=== PATIENT | female | born 1990 | race Caucasian/White ===

== ENCOUNTER 2016-11-07 22:00 | Emergency (ER) | payer OTHER ==
[~2016-11-07 22:00] MED LIST: ACET-653 PO; AMOX250C3 PO; DOCU10CA PO; IBUP80TA PO; PEPC10CH PO; PEPC10TA PO; PRENTAB54 PO; PRENTAB55 PO; VITAPRTA PO; ZANTTAB PO; ZOFR20TA PO
[2016-11-08] MEDS ORDERED: OXYCODONE/APAP 5MG/325MG(BULK) 1 TAB TAB As Ordered ONE (01:42)
[2016-11-08] MEDS ORDERED: CIPROFLOXACIN 500 MG TAB As Ordered ONE (01:42)
--- NOTE | 2016-11-08 01:54 | EDDOCDS ---
Physician Documentation [facility] Name: Oralia Ross Age: 25 yrs Sex: Female : 1990 Arrival Date: 11/07/2016 Time: 22:00 Bed 9 Private MD: PATRICK Javier Disposition: 11/08/16 01:38 Discharged to Home/Self Care. Impression: Urinary tract infection, site not specified. - Condition is Stable. - Discharge Instructions: Pyelonephritis, Adult, Pyelonephritis, Adult, Lcvm-[id number], Urinary Tract Infection, Urinary Tract Infection, Dxtf-kc-Hiky. - Prescriptions for Cipro 500 mg Oral Tablet - take 1 tablet by ORAL route every 12 hours; 14 tablet. Percocet 5- 325 mg Oral Tablet - take 1 tablet by ORAL route every 6 hours As needed MDD: 4 tabs; 20 tablet. - Medication Reconciliation, Local Pharmacy Hours form. - Follow up: PATRICK Javier; When: 1 week; Reason: Continuance of care. - Problem is an ongoing problem. - Symptoms have improved. Historical: - Allergies: no known allergies; - Home Meds: 1. Advil 200 mg Oral tab (Last dose: 11/07/2016 19:00) - PMHx: Kidney stones; kidney infections; kidney stent, right side; - PSHx: Ureteral Stent- Right; - Social history: Smoking status: Patient uses tobacco products, light tobacco smoker. No barriers to communication noted, The patient speaks fluent Nigerian, Speaks appropriately for age. - Family history: No immediate family members are acutely ill. - : The pt / caregiver states he / she is not on anticoagulants. Home medication list is obtained from the patient. - Exposure Risk Screening:: None identified. SOCIAL MEDIA MANAGER: 11/07 22:31 LMP 10/16/2016 ttb Vital Signs: 22:02 BP 134 / 85; Pulse 109; Resp 18 S; Temp 96.8(O); Pulse Ox 100% on R/A; Weight 63.5 kg / dd6 139.99 lbs (R); Height 5 ft. 5 in. (165.10 cm) (R); 11/08 00:50 BP 125 / 82; Pulse 98; Resp 18; Temp 96.8; Pulse Ox 99% ; Pain 9/10; jlm 01:50 BP 130 / 74; Pulse 65; Resp 18; Temp 97.5(TE); Pulse Ox 96% on R/A; Pain 06/08; nn1 11/07 22:02 Body Mass Index 23.30 (63.50 kg, 165.10 cm) dd6 MDM: 11/07 22:34 UA Ordered. EDMS 11/08 01:25 UA Reviewed. mm11 01:33 Ciprofloxacin 500 mg PO once ordered. mm11 01:33 oxyCODONE-acetaminophen 4 pack 5 mg-325 mg 1 packets PO once; Dispense with pt, take as mm11 per instruction on package ordered. 01:34 Urine Culture Ordered. EDMS 01:51 Financial registration complete. [facility] Administered Medications: 01:51 Drug: Ciprofloxacin 500 mg [ciprofloxacin 500 mg tablet (1 tabs)] Route: PO; nn1 01:51 Drug: oxyCODONE-acetaminophen 4 pack 1 packets [oxycodone-acetaminophen 5 mg-325 mg nn1 tablet (1 tabs)] {Co-Signature: [email or web address] (Maribel Clayton RN).} Route: PO; Signatures: Dispatcher [employer] EDMI Herbert Sagastume, DO mm11 Janay Abdalla RN RN ttb Hook, Sandra [facility] Nga PerezRN RN nn1 Maribel Clayton RN kas2 MTDD
--- NOTE | 2016-11-08 01:54 | EDDOCDS ---
Nurse's Notes [facility] Name: Oralia Ross Age: 25 yrs Sex: Female : 1990 Arrival Date: 11/07/2016 Time: 22:00 Bed 9 Private MD: PATRICK Javier Diagnosis: Urinary tract infection, site not specified Presentation: 11/07 22:29 Presenting complaint: Patient states: lower abd pain, radiates into back x1 month. ttb Denies symptoms. "extreme fatigue" for 3 days. Denies GI symptoms. Some dizziness. No injury. Acute neurological deficits are not present. Mechanism of Injury: No Mechanism of Injury. Adult Sepsis Screening: The patient does not have new or worsening altered mentation. Patient's respiratory rate is less than 22. Systolic blood pressure is greater than 100. Patient has a qSOFA score of 0- Negative Sepsis Screen. Suicide/Homicide risk assessment- the patient denies having any suicidal and/or homicidal ideations and does not present with any other emotional, behavioral or mental health complaints. Status: The patient is a dependent. Transition of care: patient was not received from another setting of care. 22:29 Acuity: NITO Level 3 ttb 22:29 Method Of Arrival: Walkin/Carried/Asstd ttb Triage Assessment: 22:31 General: Appears uncomfortable, well nourished, well groomed, Behavior is appropriate ttb for age, cooperative, pleasant. Pain: Location: lower abd Pain currently is 8 out of 10 on a pain scale. Pain radiates to into back. HIV screening NA for this visit Offered previously. Cardiovascular: Chest pain is denied. Respiratory: No deficits noted. Airway is patent Denies cough, shortness of breath. GI: Reports lower abdominal pain. : Denies burning with urination, inability to void, urinary frequency, urgency. Musculoskeletal: Range of motion intact in all extremities. Injury Description: No known injury. FITNESS COORDINATOR: 22:31 LMP 10/16/2016 ttb Historical: - Allergies: no known allergies; - Home Meds: 1. Advil 200 mg Oral tab (Last dose: 11/07/2016 19:00) - PMHx: Kidney stones; kidney infections; kidney stent, right side; - PSHx: Ureteral Stent- Right; - Social history: Smoking status: Patient uses tobacco products, light tobacco smoker. No barriers to communication noted, The patient speaks fluent Gibraltarian, Speaks appropriately for age. - Family history: No immediate family members are acutely ill. - : The pt / caregiver states he / she is not on anticoagulants. Home medication list is obtained from the patient. - Exposure Risk Screening:: None identified. Screenin/10 01:49 Screening information is obtained from the patient. Fall risk: No risks identified. nn1 Assistance ADL's: requires no assistance with activities of daily living. Abuse/DV Screen: The patient / caregiver reports he/she is: not in a situation that causes fear, pain or injury. Nutritional screening: No deficits noted. Advance Directives: Currently, there is no health care proxy. home support is adequate. Assessment: 01:21 General: Appears in no apparent distress, uncomfortable, Behavior is appropriate for nn1 age, cooperative. General: Patient reports increased fatigue, reports pain has become worse over the last few days. . Pain: Location: left low back Pain currently is 9 out of 10 on a pain scale. Pain radiates to left lower quadrant Quality of pain is described as sharp, Pain began couple of weeks ago. Neurological: Level of Consciousness is awake, alert, obeys commands, Oriented to person, place, time. Respiratory: Airway is patent Respiratory effort is even, unlabored, Respiratory pattern is regular, symmetrical, GI: Abdomen is non- distended Bowel sounds present X 4 quads. Abd is soft X 4 quads Denies constipation, diarrhea, nausea, vomiting. : Denies burning with urination, cramping discharge. Derm: Skin is pink, warm & dry. 01:49 General: Appears in no apparent distress, Behavior is appropriate for age, cooperative. nn1 Pain: Pain currently is 8 out of 10 on a pain scale. Neurological: Level of Consciousness is awake, alert. Respiratory: Airway is patent Respiratory effort is even, unlabored. Derm: Skin is pink, warm & dry. Vital Signs: 11/07 22:02 BP 134 / 85; Pulse 109; Resp 18 S; Temp 96.8(O); Pulse Ox 100% on R/A; Weight 63.5 kg dd6 (R); Height 5 ft. 5 in. (165.10 cm) (R); 11/08 00:50 BP 125 / 82; Pulse 98; Resp 18; Temp 96.8; Pulse Ox 99% ; Pain 9/10; jlm 01:50 BP 130 / 74; Pulse 65; Resp 18; Temp 97.5(TE); Pulse Ox 96% on R/A; Pain 8/10; nn1 11/07 22:02 Body Mass Index 23.30 (63.50 kg, 165.10 cm) dd6 Vitals: 11/07 22:02 Log In Time: November 07, 2016 at 22:00. dd6 ED Course: 22:01 Patient visited by Master Harp PCA. dd6 22:01 Patient moved to Waiting dd6 22:02 Concepcion [facility] is Private Physician. dd6 22:02 Patient moved to Pre RCE dd6 22:30 Triage Initiated ttb 22:37 UA Sent. ar3 22:38 Patient visited by Crissy Harkins PCA. ar3 11/08 00:52 Patient visited by Ceci Porter Strike Plate Attacher. jlm 01:16 Patient moved to 9 sls1 01:23 Herbert Sagastume DO is Attending Physician. mm11 01:23 Patient visited by Herbert Sagastume DO. mm11 01:33 Patient visited by Herbert Sagastume DO. mm11 01:37 PATRICK Javier is Referral Physician. mm11 01:50 No IV's were initiated during this patient's visit. No procedures done that require nn1 assistance. 01:51 The patient / caregiver is instructed regarding the plan of care and ED course. nn1 Administered Medications: 01:51 Drug: Ciprofloxacin 500 mg [ciprofloxacin 500 mg tablet (1 tabs)] Route: PO; nn1 01:51 Drug: oxyCODONE-acetaminophen 4 pack 1 packets [oxycodone-acetaminophen 5 mg-325 mg nn1 tablet (1 tabs)] {Co-Signature: kas2 (Maribel Clayton RN).} Route: PO; Order Results: Lab Order: UA; SPEC'M 11/07/16 22:37 Test: APPEARANCE, URINE; Value: CLOUDY; Range: CLEAR; Abnormal: Above high normal; Status: F Test: COLOR, URINE; Value: YELLOW; Range: YELLOW; Status: F Test: PH,URINE; Value: 6.0; Range: 5.0-9.0; Units: UNITS; Status: F Test: SPECIFIC GRAVITY URINE AUTO; Value: 1.018; Range: 1.002-1.035; Status: F Test: PROTEIN, URINE AUTO; Value: NEGATIVE; Range: NEGATIVE; Units: mg/dL; Status: F Test: GLUCOSE, URINE (UA) AUTO; Value: NEGATIVE; Range: NEGATIVE; Units: mg/dL; Status: F Test: KETONE, URINE AUTO; Value: NEGATIVE; Range: NEGATIVE; Units: mg/dL; Status: F Test: UROBILINOGEN, URINE AUTO; Value: 0.2; Range: 0.0-2.0; Units: mg/dL; Status: F Test: BILIRUBIN, URINE AUTO; Value: NEGATIVE; Range: NEGATIVE; Status: F Test: NITRITE, URINE AUTO; Value: NEGATIVE; Range: NEGATIVE; Status: F Test: LEUKOCYTE ESTERASE, URINE AUTO; Value: 2+; Range: NEGATIVE; Abnormal: Above high normal; Status: F Test: BLOOD, URINE BLOOD; Value: 2+; Range: NEGATIVE; Abnormal: Above high normal; Status: F Test: WBC, URINE AUTO; Value: 7; Range: 0-3; Abnormal: Above high normal; Units: /HPF; Status: F Test: RBC, URINE AUTO; Value: 133; Range: 0-3; Abnormal: Above high normal; Units: /HPF; Status: F Test: BACTERIA, URINE AUTO; Value: NEGATIVE; Range: NEGATIVE; Status: F Test: SQUAMOUS EPITHELIAL CELL UR AU; Value: 5; Range: 0-6; Units: /HPF; Status: F Test: MUCUS, URINE; Value: SMALL; Range: NEGATIVE; Status: F Test: HYALINE CAST, URINE AUTO; Value: 0; Range: 0-1; Units: /LPF; Status: F Outcome: 01:38 Discharge ordered by Provider. mm11 01:50 Discharge Assessment: Patient awake, alert and oriented x 3. No cognitive and/or nn1 functional deficits noted. Patient verbalized understanding of disposition instructions. patient administered narcotics - no. The following High Risk Discharge criteria are identified: None. Discharged to home ambulatory. Condition: stable. Prescriptions given X 2. No special radiology studies were completed. Property :Personal belongings accompany Pt. 01:53 Patient left the ED. nn1 Signatures: Herbert Sagastume DO DO mm11 Master Harp, COMMUNICATIONS PROGRAM MANAGER COMMUNICATIONS PROGRAM MANAGER dd6 Crissy Harkins, COMMUNICATIONS PROGRAM MANAGER COMMUNICATIONS PROGRAM MANAGER ar3 Opal Cohen, RN RN sls1 Janay Abdalla, RN RN Ceci Blackman, Strike Plate Attacher Unit benjamín Nga Perez,RN RN nn1 Maribel Clayton RN kas2 MTDD
--- NOTE | 2016-11-10 02:54 | EDDOCDS ---
Physician Documentation [facility] Name: Oralia Ross Age: 25 yrs Sex: Female : 1990 Arrival Date: 11/07/2016 Time: 22:00 Bed 9 Private MD: PATRICK Javier Disposition: 11/08/16 01:38 Discharged to Home/Self Care. Impression: Urinary tract infection, site not specified. - Condition is Stable. - Discharge Instructions: Pyelonephritis, Adult, Pyelonephritis, Adult, Noxz-ui-Typf, Urinary Tract Infection, Urinary Tract Infection, Fdmi-ku-Mvjl. - Prescriptions for Cipro 500 mg Oral Tablet - take 1 tablet by ORAL route every 12 hours; 14 tablet. Percocet 5- 325 mg Oral Tablet - take 1 tablet by ORAL route every 6 hours As needed MDD: 4 tabs; 20 tablet. - Medication Reconciliation, Local Pharmacy Hours form. - Follow up: PATRICK Javier; When: 1 week; Reason: Continuance of care. - Problem is an ongoing problem. - Symptoms have improved. Historical: - Allergies: no known allergies; - Home Meds: 1. Advil 200 mg Oral tab (Last dose: 11/07/2016 19:00) - PMHx: Kidney stones; kidney infections; kidney stent, right side; - PSHx: Ureteral Stent- Right; - Social history: Smoking status: Patient uses tobacco products, light tobacco smoker. No barriers to communication noted, The patient speaks fluent Danish, Speaks appropriately for age. - Family history: No immediate family members are acutely ill. - : The pt / caregiver states he / she is not on anticoagulants. Home medication list is obtained from the patient. - Exposure Risk Screening:: None identified. TRIALS MANAGER: 11/07 22:31 LMP 10/16/2016 ttb Vital Signs: 22:02 BP 134 / 85; Pulse 109; Resp 18 S; Temp 96.8(O); Pulse Ox 100% on R/A; Weight 63.5 kg / dd6 139.99 lbs (R); Height 5 ft. 5 in. (165.10 cm) (R); 11/08 00:50 BP 125 / 82; Pulse 98; Resp 18; Temp 96.8; Pulse Ox 99% ; Pain 9/10; jlm 01:50 BP 130 / 74; Pulse 65; Resp 18; Temp 97.5(TE); Pulse Ox 96% on R/A; Pain 8/10; nn1 11/07 22:02 Body Mass Index 23.30 (63.50 kg, 165.10 cm) dd6 MDM: 11/07 22:34 UA Ordered. EDMS 11/08 01:25 UA Reviewed. mm11 01:33 Ciprofloxacin 500 mg PO once ordered. mm11 01:33 oxyCODONE-acetaminophen 4 pack 5 mg-325 mg 1 packets PO once; Dispense with pt, take as mm11 per instruction on package ordered. 01:34 Urine Culture Ordered. EDMS 01:51 Financial registration complete. [facility] 03:12 T-Sheet-- Draft Copy was scanned into [employer] and attached to record. 2 04:13 [facility] Payment Agreement was scanned into [employer] and attached to record. [facility] Administered Medications: 01:51 Drug: Ciprofloxacin 500 mg [ciprofloxacin 500 mg tablet (1 tabs)] Route: PO; nn1 01:51 Drug: oxyCODONE-acetaminophen 4 pack 1 packets [oxycodone-acetaminophen 5 mg-325 mg nn1 tablet (1 tabs)] {Co-Signature: [email or web address] (Maribel Clayton RN).} Route: PO; Signatures: Dispatcher [employer] EDND Herbert Sagastume DO DO mm11 Janay Abdalla RN RN Silvia Latham Nga DesirRN RN nn1 Yancy Tavera, Reg Reg hs2 Maribel Clayton RN kas2 The chart was reviewed and I authenticate all verbal orders and agree with the evaluation and treatment provided.Attachments: 03:12 T-Sheet-- Draft Copy hs2 04:13 [facility] Payment Agreement [facility] Chart Complete MTDD
--- NOTE | 2016-11-10 02:54 | EDDOCDS ---
Physician Documentation [facility] Name: Oralia Ross Age: 25 yrs Sex: Female : 1990 Arrival Date: 11/07/2016 Time: 22:00 Bed 9 Private MD: PATRICK Javier Disposition: 11/08/16 01:38 Discharged to Home/Self Care. Impression: Urinary tract infection, site not specified. - Condition is Stable. - Discharge Instructions: Pyelonephritis, Adult, Pyelonephritis, Adult, Syqd-hj-Kyen, Urinary Tract Infection, Urinary Tract Infection, Ktnz-qp-Iacz. - Prescriptions for Cipro 500 mg Oral Tablet - take 1 tablet by ORAL route every 12 hours; 14 tablet. Percocet 5- 325 mg Oral Tablet - take 1 tablet by ORAL route every 6 hours As needed MDD: 4 tabs; 20 tablet. - Medication Reconciliation, Local Pharmacy Hours form. - Follow up: PATRICK Javier; When: 1 week; Reason: Continuance of care. - Problem is an ongoing problem. - Symptoms have improved. Historical: - Allergies: no known allergies; - Home Meds: 1. Advil 200 mg Oral tab (Last dose: 11/07/2016 19:00) - PMHx: Kidney stones; kidney infections; kidney stent, right side; - PSHx: Ureteral Stent- Right; - Social history: Smoking status: Patient uses tobacco products, light tobacco smoker. No barriers to communication noted, The patient speaks fluent Maori, Speaks appropriately for age. - Family history: No immediate family members are acutely ill. - : The pt / caregiver states he / she is not on anticoagulants. Home medication list is obtained from the patient. - Exposure Risk Screening:: None identified. ENVIRONMENTAL MAINTENANCE WORKER: 11/07 22:31 LMP 10/16/2016 ttb Vital Signs: 22:02 BP 134 / 85; Pulse 109; Resp 18 S; Temp 96.8(O); Pulse Ox 100% on R/A; Weight 63.5 kg / dd6 139.99 lbs (R); Height 5 ft. 5 in. (165.10 cm) (R); 11/08 00:50 BP 125 / 82; Pulse 98; Resp 18; Temp 96.8; Pulse Ox 99% ; Pain 9/10; jlm 01:50 BP 130 / 74; Pulse 65; Resp 18; Temp 97.5(TE); Pulse Ox 96% on R/A; Pain 8/10; nn1 11/07 22:02 Body Mass Index 23.30 (63.50 kg, 165.10 cm) dd6 MDM: 11/07 22:34 UA Ordered. EDMS 11/08 01:25 UA Reviewed. mm11 01:33 Ciprofloxacin 500 mg PO once ordered. mm11 01:33 oxyCODONE-acetaminophen 4 pack 5 mg-325 mg 1 packets PO once; Dispense with pt, take as mm11 per instruction on package ordered. 01:34 Urine Culture Ordered. EDMS 01:51 Financial registration complete. [facility] 03:12 T-Sheet-- Draft Copy was scanned into [email or web address] and attached to record. 2 04:13 [facility] Payment Agreement was scanned into [email or web address] and attached to record. [facility] Administered Medications: 01:51 Drug: Ciprofloxacin 500 mg [ciprofloxacin 500 mg tablet (1 tabs)] Route: PO; nn1 01:51 Drug: oxyCODONE-acetaminophen 4 pack 1 packets [oxycodone-acetaminophen 5 mg-325 mg nn1 tablet (1 tabs)] {Co-Signature: [email or web address] (Maribel Clayton RN).} Route: PO; Signatures: Dispatcher [employer] EDHI Herbert Sagastume DO DO mm11 Janay Abdalla RN RN Silvia Latham Nga DesirRN RN nn1 Yancy Tavera, Reg Reg hs2 Maribel Clayton RN kas2 The chart was reviewed and I authenticate all verbal orders and agree with the evaluation and treatment provided.Attachments: 03:12 T-Sheet-- Draft Copy hs2 04:13 [facility] Payment Agreement [facility] Chart Complete MTDD
--- NOTE | 2016-11-10 02:54 | EDDOCDS ---
Nurse's Notes [facility] Name: Oralia Ross Age: 25 yrs Sex: Female : 1990 Arrival Date: 11/07/2016 Time: 22:00 Bed 9 Private MD: PATRICK Javier Diagnosis: Urinary tract infection, site not specified Presentation: 11/07 22:29 Presenting complaint: Patient states: lower abd pain, radiates into back x1 month. ttb Denies symptoms. "extreme fatigue" for 3 days. Denies GI symptoms. Some dizziness. No injury. Acute neurological deficits are not present. Mechanism of Injury: No Mechanism of Injury. Adult Sepsis Screening: The patient does not have new or worsening altered mentation. Patient's respiratory rate is less than 22. Systolic blood pressure is greater than 100. Patient has a qSOFA score of 0- Negative Sepsis Screen. Suicide/Homicide risk assessment- the patient denies having any suicidal and/or homicidal ideations and does not present with any other emotional, behavioral or mental health complaints. Status: The patient is a dependent. Transition of care: patient was not received from another setting of care. 22:29 Acuity: NITO Level 3 ttb 22:29 Method Of Arrival: Walkin/Carried/Asstd ttb Triage Assessment: 22:31 General: Appears uncomfortable, well nourished, well groomed, Behavior is appropriate ttb for age, cooperative, pleasant. Pain: Location: lower abd Pain currently is 8 out of 10 on a pain scale. Pain radiates to into back. HIV screening NA for this visit Offered previously. Cardiovascular: Chest pain is denied. Respiratory: No deficits noted. Airway is patent Denies cough, shortness of breath. GI: Reports lower abdominal pain. : Denies burning with urination, inability to void, urinary frequency, urgency. Musculoskeletal: Range of motion intact in all extremities. Injury Description: No known injury. PARISH NURSE: 22:31 LMP 10/16/2016 ttb Historical: - Allergies: no known allergies; - Home Meds: 1. Advil 200 mg Oral tab (Last dose: 11/07/2016 19:00) - PMHx: Kidney stones; kidney infections; kidney stent, right side; - PSHx: Ureteral Stent- Right; - Social history: Smoking status: Patient uses tobacco products, light tobacco smoker. No barriers to communication noted, The patient speaks fluent Irish, Speaks appropriately for age. - Family history: No immediate family members are acutely ill. - : The pt / caregiver states he / she is not on anticoagulants. Home medication list is obtained from the patient. - Exposure Risk Screening:: None identified. Screenin/10 01:49 Screening information is obtained from the patient. Fall risk: No risks identified. nn1 Assistance ADL's: requires no assistance with activities of daily living. Abuse/DV Screen: The patient / caregiver reports he/she is: not in a situation that causes fear, pain or injury. Nutritional screening: No deficits noted. Advance Directives: Currently, there is no health care proxy. home support is adequate. Assessment: 01:21 General: Appears in no apparent distress, uncomfortable, Behavior is appropriate for nn1 age, cooperative. General: Patient reports increased fatigue, reports pain has become worse over the last few days. . Pain: Location: left low back Pain currently is 9 out of 10 on a pain scale. Pain radiates to left lower quadrant Quality of pain is described as sharp, Pain began couple of weeks ago. Neurological: Level of Consciousness is awake, alert, obeys commands, Oriented to person, place, time. Respiratory: Airway is patent Respiratory effort is even, unlabored, Respiratory pattern is regular, symmetrical, GI: Abdomen is non- distended Bowel sounds present X 4 quads. Abd is soft X 4 quads Denies constipation, diarrhea, nausea, vomiting. : Denies burning with urination, cramping discharge. Derm: Skin is pink, warm & dry. 01:49 General: Appears in no apparent distress, Behavior is appropriate for age, cooperative. nn1 Pain: Pain currently is 8 out of 10 on a pain scale. Neurological: Level of Consciousness is awake, alert. Respiratory: Airway is patent Respiratory effort is even, unlabored. Derm: Skin is pink, warm & dry. Vital Signs: 11/07 22:02 BP 134 / 85; Pulse 109; Resp 18 S; Temp 96.8(O); Pulse Ox 100% on R/A; Weight 63.5 kg dd6 (R); Height 5 ft. 5 in. (165.10 cm) (R); 11/08 00:50 BP 125 / 82; Pulse 98; Resp 18; Temp 96.8; Pulse Ox 99% ; Pain 9/10; jlm 01:50 BP 130 / 74; Pulse 65; Resp 18; Temp 97.5(TE); Pulse Ox 96% on R/A; Pain 8/10; nn1 11/07 22:02 Body Mass Index 23.30 (63.50 kg, 165.10 cm) dd6 Vitals: 11/07 22:02 Log In Time: November 07, 2016 at 22:00. dd6 ED Course: 22:01 Patient visited by Master Harp PCA. dd6 22:01 Patient moved to Waiting dd6 22:02 Concepcion [facility] is Private Physician. dd6 22:02 Patient moved to Pre RCE dd6 22:30 Triage Initiated ttb 22:37 UA Sent. ar3 22:38 Patient visited by Crissy Harkins PCA. ar3 11/08 00:52 Patient visited by Ceci Porter Tool [employer]. jlm 01:16 Patient moved to 9 sls1 01:23 Herbert Sagastume DO is Attending Physician. mm11 01:23 Patient visited by Herbert Sagastume DO. mm11 01:33 Patient visited by Herbert Sagastume DO. mm11 01:37 Concepcion [facility] is Referral Physician. mm11 01:50 No IV's were initiated during this patient's visit. No procedures done that require nn1 assistance. 01:51 The patient / caregiver is instructed regarding the plan of care and ED course. nn1 03:12 T-Sheet-- Draft Copy was scanned into Collect and attached to record. hs2 04:13 PENDING SALE TO [facility] Payment Agreement was scanned into Collect and attached to record. [facility] Administered Medications: 01:51 Drug: Ciprofloxacin 500 mg [ciprofloxacin 500 mg tablet (1 tabs)] Route: PO; nn1 01:51 Drug: oxyCODONE-acetaminophen 4 pack 1 packets [oxycodone-acetaminophen 5 mg-325 mg nn1 tablet (1 tabs)] {Co-Signature: kas2 (Maribel Clayton RN).} Route: PO; Order Results: Lab Order: UA; SPEC'M 11/07/16 22:37 Test: APPEARANCE, URINE; Value: CLOUDY; Range: CLEAR; Abnormal: Above high normal; Status: F Test: COLOR, URINE; Value: YELLOW; Range: YELLOW; Status: F Test: PH,URINE; Value: 6.0; Range: 5.0-9.0; Units: UNITS; Status: F Test: SPECIFIC GRAVITY URINE AUTO; Value: 1.018; Range: 1.002-1.035; Status: F Test: PROTEIN, URINE AUTO; Value: NEGATIVE; Range: NEGATIVE; Units: mg/dL; Status: F Test: GLUCOSE, URINE (UA) AUTO; Value: NEGATIVE; Range: NEGATIVE; Units: mg/dL; Status: F Test: KETONE, URINE AUTO; Value: NEGATIVE; Range: NEGATIVE; Units: mg/dL; Status: F Test: UROBILINOGEN, URINE AUTO; Value: 0.2; Range: 0.0-2.0; Units: mg/dL; Status: F Test: BILIRUBIN, URINE AUTO; Value: NEGATIVE; Range: NEGATIVE; Status: F Test: NITRITE, URINE AUTO; Value: NEGATIVE; Range: NEGATIVE; Status: F Test: LEUKOCYTE ESTERASE, URINE AUTO; Value: 2+; Range: NEGATIVE; Abnormal: Above high normal; Status: F Test: BLOOD, URINE BLOOD; Value: 2+; Range: NEGATIVE; Abnormal: Above high normal; Status: F Test: WBC, URINE AUTO; Value: 7; Range: 0-3; Abnormal: Above high normal; Units: /HPF; Status: F Test: RBC, URINE AUTO; Value: 133; Range: 0-3; Abnormal: Above high normal; Units: /HPF; Status: F Test: BACTERIA, URINE AUTO; Value: NEGATIVE; Range: NEGATIVE; Status: F Test: SQUAMOUS EPITHELIAL CELL UR AU; Value: 5; Range: 0-6; Units: /HPF; Status: F Test: MUCUS, URINE; Value: SMALL; Range: NEGATIVE; Status: F Test: HYALINE CAST, URINE AUTO; Value: 0; Range: 0-1; Units: /LPF; Status: F Outcome: 01:38 Discharge ordered by Provider. mm11 01:50 Discharge Assessment: Patient awake, alert and oriented x 3. No cognitive and/or nn1 functional deficits noted. Patient verbalized understanding of disposition instructions. patient administered narcotics - no. The following High Risk Discharge criteria are identified: None. Discharged to home ambulatory. Condition: stable. Prescriptions given X 2. No special radiology studies were completed. Property :Personal belongings accompany Pt. 01:53 Patient left the ED. nn1 Signatures: Herbert Sagastume, DO mm11 Master Harp, COTTAGE ATTENDANT COTTAGE ATTENDANT dd6 Keith Harkinsa, COTTAGE ATTENDANT COTTAGE ATTENDANT ar3 Opal Cohen RN RN sls1 Janay Abdalla RN RN ttb Ceci Porter, Tool Smith Unit Silvia Guerrero Nikkole, RN RN nn1 Yancy Tavera, Reg Reg hs2 Maribel Clayton RN kas2 Chart Complete MTDD
== END 2016-11-08 01:53 | disposition home or self-care (01) ==
LOC: M ED 22:00
DX: N39.0 Urinary tract infection, site not specified (principal); Z87.442 Personal history of urinary calculi; Z87.440 Personal history of urinary (tract) infections; Z96.0 Presence of urogenital implants; F17.200 Nicotine dependence, unspecified, uncomplicated

== ENCOUNTER 2017-01-08 07:20 | Emergency (ER) | payer OTHER, SELFPAY ==
[~2017-01-08] VITALS: Ht 165.1 cm; Wt 65.8 kg
[2017-01-08] MEDS ORDERED: OXYC1TAB23 PO (07:31)
[2017-01-08] MEDS ORDERED: NS 1,000 ML IV ONE (08:00)
[2017-01-08] MEDS ORDERED: KETOROLAC 30 MG/ML VIAL (J1885) IV ONE (08:00)
[2017-01-08] MEDS ORDERED: ONDANSETRON 4MG/2ML VIAL (J2405) IV ONE (08:00)
[2017-01-08] MEDS: MORPHINE 4 MG/ML 1ML SYRINGE IV PRN ×2 (08:40→09:23)
[2017-01-08 08:56] LABS: BASO % 0.2 % (0.0-1.0); EOS # 0.1 K/mm3 (0.0-0.50); EOS % 0.7 % (0.0-3.0); LARGE UNSTAINED CELL # 0.1 K/mm3 (0.0-0.4); LARGE UNSTAINED CELL % 0.6 % (0.0-4.0); LYMPH # 1.8 K/mm3 (1.5-6.5); LYMPH % 12.3 % (24.0-44.0); MEAN CORPUSCULAR HEMOGLOBIN 32.7 pg (27.0-33.0); MEAN CORPUSCULAR HGB CONC 34.2 g/dl (32.0-36.5); MEAN CORPUSCULAR VOLUME 95.8 fl (80.0-96.0); MONO # 0.5 K/mm3 (0.0-0.8); MONO % 3.9 % (0.0-5.0); NEUTROPHILS # 11.4 K/mm3 (1.8-7.7); NEUTROPHILS % 82.4 % (36.0-66.0); PLATELET COUNT, AUTOMATED 296 k/mm3 (150-450); RED CELL DISTRIBUTION WIDTH 12.4 % (11.5-14.5); WHITE BLOOD COUNT 13.8 K/mm3 (4.0-10.0)
[2017-01-08 09:11] LABS: ALBUMIN 3.9 GM/DL (3.2-5.2); ALKALINE PHOSPHATASE 54 U/L (45-117); ALT/SGPT 18 U/L (12-78); AMYLASE 43 U/L (25-115); ANION GAP 8 MEQ/L (8-16); AST/SGOT 16 U/L (15-37); BILIRUBIN,DIRECT 0.1 MG/DL (0.0-0.2); BILIRUBIN,TOTAL 0.4 MG/DL (0.2-1.0); BLOOD UREA NITROGEN 15 MG/DL (7-18); CALCIUM LEVEL 8.7 MG/DL (8.5-10.1); CARBON DIOXIDE LEVEL 25 MEQ/L (21-32); CHLORIDE LEVEL 108 MEQ/L (98-107); GLOMERULAR FILTRATION RATE > 60.0 (>60); GLUCOSE, FASTING 92 MG/DL (70-105); SODIUM LEVEL 141 MEQ/L (136-145); TOTAL PROTEIN 6.9 GM/DL (6.4-8.2)
[2017-01-08] MEDS ORDERED: ONDANSETRON 4 MG ORAL DISINTEGRATING TAB (S0181) PO ONE (10:00)
[2017-01-08] MEDS ORDERED: PERCOCET 5MG/325MG TAB PO ONE ×2 (10:00→10:15)
[2017-01-08] MEDS ORDERED: BACTRIM 160MG/800MG DS TAB PO ONE (10:15)
[2017-01-08] MEDS ORDERED: ZOFR4TAB3 PO (10:20)
[2017-01-08] MEDS ORDERED: KETO10TAB PO (10:20)
[2017-01-08] MEDS ORDERED: BACT800T5 PO (10:20)
[2017-01-08 11:02] VITALS: BP 123/66
--- NOTE | 2017-01-08 11:24 | REP ---
Pain after lithotripsy. PRIOR: With contrast CT of 09/27/2016 reviewed. Limited evaluation of the solid intra-abdominal organs and gallbladder shown no gross abnormalities. Limited evaluation of the pancreas and adrenal glands show no gross abnormalities. There is no right-sided hydronephrosis or hydroureter. There are no right-sided nephroliths. There is moderate left-sided hydronephrosis and hydroureter which can be followed distally to the ureterovesical junction where at least two possibly more in-line calculi reside with an overall measurement of approximately 8 to 9 mm in length. Limited evaluation of the abdominal aorta and para-aortic regions show no gross abnormalities. There are no chololiths. Limited evaluation of the bowel loops and their mesenteries show no gross abnormalities. No free fluid or free air is seen in the abdomen or pelvis. The osseous structures are stable and intact. IMPRESSION: Left-sided hydronephrosis and hydroureter secondary to distal left ureteroliths as described above. In addition, there are three to five intrarenal calculi which are in the proximal renal collecting system at the precipice of calices and some possibly with the left renal pelvis. Signed by John Evans DO 01/08/2017 11:26 A
== END 2017-01-08 11:04 | disposition home or self-care (01) ==
LOC: M ED 09:54
DX: N23 Unspecified renal colic (principal); N13.4 Hydroureter; Z98.890 Other specified postprocedural states; Z87.442 Personal history of urinary calculi
CPT/HCPCS: 74176; 80048; 80076; 81001; 82150; 83690; 85025; 87040; 87086; 93041; 96361; 96374; 96375; 96376; 99284; J1885; J2405